=== PATIENT | female | born 1985 | race Caucasian/White ===

== ENCOUNTER 2019-07-22 14:15 | Inpatient (IN) | payer OTHER ==
[2019-08-28] MEDS ORDERED: XIGDUO XR 5 MG1 EAC1 (10:33)
[2019-09-06] MEDS ORDERED: ULTRAM50 MG PO (10:57)
[2019-09-06] MEDS ORDERED: NEURONTIN300 MG PO (10:57)
[2019-09-06] MEDS ORDERED: MIRALAX17 GM PO (10:57)
[2019-09-06] MEDS ORDERED: TYLENOL ARTHRI650 MG PO (10:57)
== END 2019-09-06 11:30 | disposition home or self-care (01) | DRG 354 ==
LOC: EDSTATUS 08-28 09:15 → ADM 08-28 09:15 → SURH 09-04 07:00 → O/R 09-04 09:48 → SURH 09-04 16:21
PROVIDERS: Obstetrics & Gynecology Gynecology; ADMIT Surgery
PROC: 0JX80ZZ Transfer Abdomen Subcutaneous Tissue and Fascia, Open Approach (ICD-10-PCS; 2019-09-04)
PROC: 0UB04ZZ Excision of Right Ovary, Percutaneous Endoscopic Approach (ICD-10-PCS; 2019-09-04)
PROC: 3E0F7GC Introduction of Other Therapeutic Substance into Respiratory Tract, Via Natural or Artificial Opening (ICD-10-PCS; 2019-09-04)
PROC: 0WQF0ZZ Repair Abdominal Wall, Open Approach (ICD-10-PCS; principal; 2019-09-04 07:00)
PROC: 0WJF4ZZ Inspection of Abdominal Wall, Percutaneous Endoscopic Approach (ICD-10-PCS; 2019-09-04 07:00)
PROC: 4A033R1 Measurement of Arterial Saturation, Peripheral, Percutaneous Approach (ICD-10-PCS; 2019-09-05)
DX: K42.0 Umbilical hernia with obstruction, without gangrene (principal); J45.41 Moderate persistent asthma with (acute) exacerbation; J95.89 Other postprocedural complications and disorders of respiratory system, not elsewhere classified; J98.11 Atelectasis; J90 Pleural effusion, not elsewhere classified; K43.0 Incisional hernia with obstruction, without gangrene; D27.0 Benign neoplasm of right ovary; E66.09 Other obesity due to excess calories; E11.9 Type 2 diabetes mellitus without complications; Z79.4 Long term (current) use of insulin

== ENCOUNTER 2019-09-12 12:26 | Inpatient (IN) | payer OTHER ==
[~2019-09-12] VITALS: Ht 154.9 cm; Wt 94.8 kg
[~2019-09-12 12:26] MED LIST: MIRALAX17 GM PO; NEURONTIN300 MG PO; TYLENOL ARTHRI650 MG PO; ULTRAM50 MG PO; XIGDUO XR 5 MG1 EAC1
--- NOTE | 2019-09-12 13:01 | NUR ---
PACIENTE ALERTA,ACTIVA Y ORIENTADA.TIENE REFERIDO DE DR CHRIS MCCAIN POR ABCESO EN AREA UMBILICAL [place] DE RECONSTRUCCION DE HERNIAS.PACIENTE CON DRENAJE EL CUAL TENDRA POR VALERIE SEMANA MAS.
[2019-09-12] MEDS ORDERED: [UNRECOGNIZED DRUG - OTHER] (13:05)
[2019-09-12] MEDS ORDERED: [UNRECOGNIZED DRUG - OTHER] (13:06)
[2019-09-12] MEDS ORDERED: MORGIDOX100 MG (13:10)
--- NOTE | 2019-09-12 13:43 | NUR ---
SE EDUCA A PTE SOBRE TX MEDICO ESTA REFIERE ENTENDER. SE MAGUI MUESTRAS DE LAB UTILIZANDO MEDIDAS ASEPTICAS. SE COLOCA H/L A PTE EL CUAL SE ENCUENTRA PATENTE CATHLEEN DE EDEMA Y ENROJECIMIENTO. SE COLOCA IV BAG A PTE Y SE NOTIFICA ESTUDIO DE CT PENDIENTE A REALIZAR. PTE SE CONTINUA MONITORIANDO POR CAMBIOS.
[2019-09-15] MEDS ORDERED: SULFAMETHOXAZO1 EACH (15:09)
[2019-09-16] MEDS ORDERED: BACTRIM DS TAB1 EACH PO (04:53)
== END 2019-09-16 09:49 | disposition home or self-care (01) | DRG 857 ==
LOC: ER 12:26 → SURG 15:40 → SEC-K 15:40 → SURG 18:13
PROVIDERS: ADMIT Surgery
PROC: 0W9F0ZZ Drainage of Abdominal Wall, Open Approach (ICD-10-PCS; principal; 2019-09-12)
PROC: BW21ZZZ Computerized Tomography (CT Scan) of Abdomen and Pelvis (ICD-10-PCS; 2019-09-12)
DX: T81.41XA Infection following a procedure, superficial incisional surgical site, initial encounter (principal); J45.31 Mild persistent asthma with (acute) exacerbation; J98.11 Atelectasis; L02.211 Cutaneous abscess of abdominal wall; B96.4 Proteus (mirabilis) (morganii) as the cause of diseases classified elsewhere; E66.09 Other obesity due to excess calories; E11.9 Type 2 diabetes mellitus without complications; Z79.4 Long term (current) use of insulin

== ENCOUNTER 2019-11-03 00:13 | Inpatient (IN) | payer OTHER ==
[~2019-11-03] VITALS: Ht 154.9 cm; Wt 97.5 kg
[~2019-11-03 00:13] MED LIST changes: +BACTRIM DS TAB1 EACH PO; +MORGIDOX100 MG; +SULFAMETHOXAZO1 EACH; +[UNRECOGNIZED DRUG - OTHER]; +[UNRECOGNIZED DRUG - OTHER]
[2019-11-03] MEDS ORDERED: XIGDUO XR 5 MG1 EAC1 (00:25)
--- NOTE | 2019-11-03 00:28 | NUR ---
SE RECIBE PTE ALERTA Y ORIENTADA POR MARTIN. PTE REFIERE DEB SIDO OPERADA DE HERNIA HACE MARTIN MESES POR DR. CHRIS MCCAIN Y PRESENTAR AREA DE LA HERIDA DURA, CALIENTE, CON MUCHO DOLOR Y FIEBRE DESDE EL JUEVES.
--- NOTE | 2019-11-03 03:38 | NUR ---
SE ORIENTA A PACIENTE SOBRE TRATAMIENTO. SE MAGUI MUESTRAS DE LABORATORIO ORDENADAS. SE CANALIZA CON AREA DE VENOPUNCION CATHLEEN DE EDEMA O ENROJECIMIENTO. SE MANTIENE EN OBSERVACION POR CAMBIOS.
--- NOTE | 2019-11-03 07:08 | NUR ---
PTE FEMENINA ALERTA Y ORIENTADA EN ANDREINA MARTIN ESFERAS,PRESENTA BUEN PATRON RESPIRATORIO Y NO REFIERE DOLOR. VENOPUNCION EN BRAZO DERECHO CON ANIGO 18 CON IVFS 0.9NSS AT 175ML/HR, CATHLEEN DE EDEMA Y ERITEMA. PENDIENTE CT CON CONTRASTE ORAL. SE MANTIENE EN OBSERVACION POR CAMBIOS SIGNIFICATIVOS.
[2019-11-09] MEDS ORDERED: ULTRAM50 MG PO (10:42)
== END 2019-11-09 12:27 | disposition home or self-care (01) | DRG 580 ==
LOC: ER 00:13 → SEC-K 17:15 → SURH 17:15 → O/R 18:24 → SURH 20:37
PROVIDERS: ADMIT Surgery
PROC: BW21Y0Z Computerized Tomography (CT Scan) of Abdomen and Pelvis using Other Contrast, Unenhanced and Enhanced (ICD-10-PCS; 2019-11-03)
PROC: 0W9F00Z Drainage of Abdominal Wall with Drainage Device, Open Approach (ICD-10-PCS; principal; 2019-11-03 18:00)
DX: L03.311 Cellulitis of abdominal wall (principal); J98.11 Atelectasis; T81.49XA Infection following a procedure, other surgical site, initial encounter; B96.89 Other specified bacterial agents as the cause of diseases classified elsewhere; E11.9 Type 2 diabetes mellitus without complications; E66.09 Other obesity due to excess calories; Z79.4 Long term (current) use of insulin

== ENCOUNTER 2024-01-17 08:00 | Inpatient (IN) | payer OTHER ==
[~2024-01-17] VITALS: Ht 154.9 cm; Wt 189.6 kg
[2024-01-17] MEDS ORDERED: MOUNJARO5 MG/0.5 M SQ (09:50)
[2024-01-17 10:53] LABS: PH,URINE 5.5 (5.0-8.0); URINE APPEARANCE Clear; URINE BILIRRUBIN Negative (NEGATIVE); URINE BLOOD Large; URINE COLOR Yellow; URINE GLUCOSE Negative (NEGATIVE); URINE LEUKOCYTE Trace; URINE NITRATE Negative; URINE PROTEIN Negative (NEGATIVE); URINE UROBILINOGEN 0.2 E.U./dl
[2024-01-17 10:57] LABS: URINE BACTERIA 224.2 uL (0.0-1933); URINE EPITHELIAL CELLS 2.9 uL (0.0-38.8); URINE RBC 944.7 uL (0.0-20.8); URINE WBC 28.4 uL (0.0-23.2)
[2024-01-17 11:06] LABS: HEMATOCRIT 42.5 % (36.0-45.00); HEMOGLOBIN 14.5 g/dL (12.0-15.00); MEAN CELL VOLUME 88.9 fL (80.00-100.00); MEAN CORPUSCULAR HEMOGLOBIN 30.2 pg (27.00-32.0); PLATELET COUNT 182 K/uL (150-450); RED BLOOD COUNT 4.78 M/uL (4.00-6.00)
[2024-01-17 11:35] LABS: CALCIUM 9.2 mg/dL (8.5-10.1); CREATININE SERUM 0.4 mg/dL (0.55-1.02); GFR 179.6; POTASSIUM 4.64 mEq/L (3.5-5.1)
[2024-01-17 11:42] LABS: INR 0.96; PARTIAL THROMBOPLASTIN TIME 27.4 SECONDS (22.0-34.0); PROTHROMBIN TIME 10.1 SECONDS (9.0-11.5)
[2024-01-24] MEDS ORDERED: MOUNJARO7.5 MG/0.5 (11:01)
[2024-01-24] MEDS ORDERED: LIDOCAINE HCL/EPINEPHRINE 10MG/ML 1% 50ML IJ ONE (11:35)
[2024-01-24] MEDS ORDERED: CLINDAMYCIN PHOSPHATE 150 MG/ML (600mg) ONE (11:35)
[2024-01-24] MEDS ORDERED: BUPIVACAINE HCL/PF 0.25% 30ML VIAL InF ONE (11:35)
[2024-01-24] MEDS ORDERED: CLINDAMYCIN PHOSPHATE 150 MG/ML (600mg) IV ONE (12:45)
[2024-01-24] MEDS ORDERED: THROMBIN,HU/FIBRINOGEN/CALCIUM 10 ML SYRINGE TOP ONE ×3 (14:09→14:15)
[2024-01-24] MEDS ORDERED: ONDANSETRON HCL 2 MG/ML VIAL IV PRN (16:00)
[2024-01-24] MEDS ORDERED: ENALAPRILAT DIHYDRATE 1.25 MG/ML VIAL IV PRN (16:00)
[2024-01-24] MEDS ORDERED: MORPHINE SULFATE 4 MG/ML CARTRIDGE IV PRN (16:00)
[2024-01-24] MEDS ORDERED: 0.9 % SODIUM CHLORIDE 1,000 ML IV SCH (16:00)
[2024-01-24] MEDS ORDERED: INSULIN LISPRO 1,000 UNIT/10 ML UNITS SUBCUTANEO PRN (16:15)
[2024-01-24] MEDS ORDERED: DEXTROSE 50 % IN WATER 0.5 G/ML DISP.SYRIN IV PRN (16:15)
[2024-01-24] MEDS ORDERED: BACITRACIN 28.35 GM OINT.TUBE TOP ONE (16:18)
[2024-01-24] MEDS ORDERED: FAMOTIDINE/PF 20 MG/2 ML VIAL IV SCH (17:00)
[2024-01-24] MEDS ORDERED: GABAPENTIN 300 MG CAPSULE PO SCH (17:00)
[2024-01-24] MEDS ORDERED: ACETAMINOPHEN 500 MG GEL..CAP PO SCH (18:00)
[2024-01-24] MEDS ORDERED: FAMOTIDINE/PF 20 MG/2 ML VIAL ONE (19:49)
[2024-01-24] MEDS ORDERED: KETOROLAC TROMETHAMINE 15 MG VIAL ONE (19:55)
[2024-01-24] MEDS ORDERED: KETOROLAC TROMETHAMINE 15 MG VIAL IV SCH (21:00)
[2024-01-25 07:52] LABS: HEMATOCRIT 35.9 % (36.0-45.00); MEAN CELL VOLUME 88.5 fL (80.00-100.00); MEAN CORPUSCULAR HEMOGLOBIN 29.7 pg (27.00-32.0); MEAN CORPUSCULAR HGB CONC 33.5 g/dl (32.0-36.0); PLATELET COUNT 175 K/uL (150-450); RED BLOOD COUNT 4.05 M/uL (4.00-6.00); RED CELL DISTRIBUTION WIDTH 14.8 % (11.5-14.5)
[2024-01-25 08:22] LABS: ALBUMIN 2.7 gm/dL (3.4-5.0); CALCIUM 8.1 mg/dL (8.5-10.1); CREATININE SERUM 0.39 mg/dL (0.55-1.02); GFR 184.93; MAGNESIUM 1.9 mg/dL (1.8-2.4); POTASSIUM 3.79 mEq/L (3.5-5.1)
[2024-01-25] MEDS ORDERED: ENOXAPARIN SODIUM 40 MG/0.4 ML SYRINGE SUBCUTANEO SCH (09:00)
[2024-01-25] MEDS ORDERED: POLYETHYLENE GLYCOL 3350 17 GM BLIST.PACK PO SCH (09:00)
[2024-01-25] MEDS ORDERED: NEOMYCIN/BACITRACIN/POLYMYXINB 28.35 GM OINT..GM. TOP SCH (09:00)
[2024-01-25] MEDS ORDERED: KETOROLAC TROMETHAMINE 30 MG VIAL IV SCH (13:00)
[2024-01-25] MEDS ORDERED: SUCRALFATE 1 G TABLET PO SCH (14:28)
[2024-01-26] MEDS ORDERED: TRAMADOL HCL50 MG PO (05:10)
[2024-01-26] MEDS ORDERED: MIRALAX17 GM PO (05:10)
[2024-01-26] MEDS ORDERED: NEURONTIN300 MG PO (05:10)
[2024-01-26] MEDS ORDERED: KETO10TA2 PO (05:10)
[2024-01-26] MEDS ORDERED: TYLENOL ARTHRI650 MG PO (05:10)
== END 2024-01-26 13:50 | disposition home or self-care (01) | DRG 337 ==
LOC: SURH 01-24 07:00 → O/R 01-24 10:27 → SURG 01-24 10:27
PROVIDERS: ADMIT Surgery; ATTEND Surgery
PROC: 0DNW0ZZ Release Peritoneum, Open Approach (ICD-10-PCS; 2024-01-24)
PROC: 0KRL07Z Replacement of Left Abdomen Muscle with Autologous Tissue Substitute, Open Approach (ICD-10-PCS; 2024-01-24)
PROC: 0KRK07Z Replacement of Right Abdomen Muscle with Autologous Tissue Substitute, Open Approach (ICD-10-PCS; 2024-01-24)
PROC: 0WBF0ZZ Excision of Abdominal Wall, Open Approach (ICD-10-PCS; 2024-01-24)
PROC: 0WUF0JZ Supplement Abdominal Wall with Synthetic Substitute, Open Approach (ICD-10-PCS; principal; 2024-01-24 07:00)
DX: K43.2 Incisional hernia without obstruction or gangrene (principal); K42.9 Umbilical hernia without obstruction or gangrene; Z20.822 Contact with and (suspected) exposure to COVID-19

== ENCOUNTER 2024-02-03 11:52 | Inpatient (IN) | payer OTHER ==
[~2024-02-03] VITALS: Ht 154.9 cm; Wt 86.2 kg
[~2024-02-03 11:52] MED LIST changes: +KETO10TA2 PO; +MOUNJARO5 MG/0.5 M SQ; +MOUNJARO7.5 MG/0.5; +TRAMADOL HCL50 MG PO
[2024-02-03] MEDS ORDERED: 0.9 % SODIUM CHLORIDE 1,000 ML IV STA (13:00)
[2024-02-03 13:29] LABS: PH,URINE 5.5 (5.0-8.0); URINE APPEARANCE Cloudy; URINE BILIRRUBIN Negative (NEGATIVE); URINE BLOOD Negative; URINE COLOR Yellow; URINE GLUCOSE Negative (NEGATIVE); URINE LEUKOCYTE Negative; URINE NITRATE Negative; URINE PROTEIN Negative (NEGATIVE); URINE UROBILINOGEN 0.2 E.U./dl
[2024-02-03 13:32] LABS: URINE BACTERIA 414.5 uL (0.0-1933); URINE RBC 5.4 uL (0.0-20.8); URINE WBC 26.9 uL (0.0-23.2)
[2024-02-03 14:08] LABS: HEMATOCRIT 35.2 % (36.0-45.00); HEMOGLOBIN 11.8 g/dL (12.0-15.00); MEAN CELL VOLUME 87.6 fL (80.00-100.00); MEAN CORPUSCULAR HEMOGLOBIN 29.4 pg (27.00-32.0); MEAN CORPUSCULAR HGB CONC 33.6 g/dl (32.0-36.0); PLATELET COUNT 304 K/uL (150-450); RED BLOOD COUNT 4.02 M/uL (4.00-6.00); RED CELL DISTRIBUTION WIDTH 14.6 % (11.5-14.5)
[2024-02-03 14:16] LABS: ALBUMIN 2.8 gm/dL (3.4-5.0); BILIRUBIN TOTAL 0.8 mg/dL (0.3-1.2); BILIRUBIN,CONJUGATED 0.17 mg/dL (0.0-0.2); BILIRUBIN,UNCONJUGATED 0.63 mg/dL (0.0-0.6); CALCIUM 9.4 mg/dL (8.5-10.1); CREATININE SERUM 0.44 mg/dL (0.55-1.02); GFR 160.9; INR 0.97; PARTIAL THROMBOPLASTIN TIME 27.7 SECONDS (22.0-34.0); POTASSIUM 3.83 mEq/L (3.5-5.1); PROTHROMBIN TIME 10.2 SECONDS (9.0-11.5); TOTAL PROTEIN 8.4 gm/dL (6.4-8.2)
[2024-02-03] MEDS ORDERED: MEPERIDINE HCL/PF 50 MG/ML VIAL IM ONE (15:00)
[2024-02-03] MEDS ORDERED: FAMOTIDINE/PF 20 MG/2 ML VIAL IV SCH (17:55)
[2024-02-03] MEDS ORDERED: METRONIDAZOLE/SODIUM CHLORIDE 500 MG/100 ML PIGGYBACK IV SCH (17:58)
[2024-02-03] MEDS ORDERED: VANCOMYCIN HCL 1,000 MG VIAL IV SCH (17:58)
[2024-02-03] MEDS ORDERED: INSULIN LISPRO 1,000 UNIT/10 ML UNITS SUBCUTANEO PRN (18:00)
[2024-02-03] MEDS ORDERED: GABAPENTIN 300 MG CAPSULE PO PRN (18:00)
[2024-02-03] MEDS ORDERED: ENALAPRILAT DIHYDRATE 1.25 MG/ML VIAL IV PRN (18:00)
[2024-02-03] MEDS ORDERED: DEXTROSE 50 % IN WATER 0.5 G/ML DISP.SYRIN IV PRN (18:00)
[2024-02-03] MEDS ORDERED: PIPERACILLIN/TAZOBACTAM SODIUM 3.375 GM in 0.9 % SODIUM CHLORIDE 100 ML IV SCH (18:00)
[2024-02-03] MEDS ORDERED: TRAMADOL HCL 50 MG TABLET PO PRN (18:00)
[2024-02-03] MEDS ORDERED: 0.9 % SODIUM CHLORIDE 1,000 ML IV SCH (18:00)
[2024-02-03] MEDS ORDERED: ACETAMINOPHEN 500 MG GEL..CAP PO PRN (18:00)
[2024-02-03] MEDS ORDERED: ONDANSETRON HCL 2 MG/ML VIAL IV PRN (18:00)
[2024-02-03] MEDS ORDERED: KETOROLAC TROMETHAMINE 15 MG VIAL IV SCH (21:00)
[2024-02-04] MEDS ORDERED: POLYETHYLENE GLYCOL 3350 17 GM BLIST.PACK PO SCH (09:00)
[2024-02-04] MEDS ORDERED: ENOXAPARIN SODIUM 40 MG/0.4 ML SYRINGE SUBCUTANEO SCH (09:00)
[2024-02-04] MEDS ORDERED: FAMOtidine 20 MG TABLET PO SCH (09:00)
[2024-02-04] MEDS ORDERED: INSULIN LISPRO 1,000 UNIT/10 ML UNITS SUBCUTANEO PRN (16:15)
[2024-02-04] MEDS ORDERED: DEXTROSE 50 % IN WATER 0.5 G/ML DISP.SYRIN IV PRN (16:15)
[2024-02-04] MEDS ORDERED: AMINO ACIDS 1 EACH TABLET PO SCH (17:00)
[2024-02-04] MEDS ORDERED: KETOROLAC TROMETHAMINE 30 MG VIAL IV SCH (21:00)
[2024-02-05 07:24] LABS: HEMATOCRIT 29.6 % (36.0-45.00); MEAN CELL VOLUME 89.3 fL (80.00-100.00); MEAN CORPUSCULAR HEMOGLOBIN 30.2 pg (27.00-32.0); MEAN CORPUSCULAR HGB CONC 33.8 g/dl (32.0-36.0); PLATELET COUNT 271 K/uL (150-450); RED BLOOD COUNT 3.31 M/uL (4.00-6.00); RED CELL DISTRIBUTION WIDTH 14.3 % (11.5-14.5)
[2024-02-05 07:54] LABS: ALBUMIN 2.2 gm/dL (3.4-5.0); BILIRUBIN TOTAL 0.49 mg/dL (0.3-1.2); CALCIUM 8.3 mg/dL (8.5-10.1); CREATININE SERUM 0.44 mg/dL (0.55-1.02); GFR 160.9; GLOBULINA 3.7 G/DL (2.4-3.5); MAGNESIUM 1.9 mg/dL (1.8-2.4); PHOSPHOROUS 4.3 mg/dL (2.5-4.9); POTASSIUM 4.36 mEq/L (3.5-5.1); TOTAL PROTEIN 5.9 gm/dL (6.4-8.2)
[2024-02-05 07:56] LABS: C-REACTIVE PROTEIN 7.16 MG/DL (0.00-0.29)
[2024-02-05] MEDS ORDERED: LACTOBACILLUS ACIDOPHILUS 1 CAP CAP PO SCH (09:00)
[2024-02-05 20:12] LABS: ob NEGATIVE (NEGATIVE)
[2024-02-06] MEDS ORDERED: INSULIN NPH HUM/REG INSULIN HM 1,000 UNIT/10 ML UNITS SUBCUTANEO SCH (17:00)
[2024-02-06] MEDS ORDERED: CEFEPIME HCL 2,000 MG VIAL IV SCH (21:00)
[2024-02-07] MEDS ORDERED: INSULIN NPH HUM/REG INSULIN HM 1,000 UNIT/10 ML UNITS SUBCUTANEO SCH (08:00)
[2024-02-07] MEDS ORDERED: KETOROLAC TROMETHAMINE 30 MG VIAL IV PRN (09:30)
[2024-02-07] MEDS ORDERED: ENOXAPARIN SODIUM 40 MG/0.4 ML SYRINGE SUBCUTANEO SCH (21:00)
[2024-02-08 05:21] LABS: HEMATOCRIT 28.1 % (36.0-45.00); HEMOGLOBIN 9.7 g/dL (12.0-15.00); MEAN CELL VOLUME 88.3 fL (80.00-100.00); MEAN CORPUSCULAR HEMOGLOBIN 30.4 pg (27.00-32.0); MEAN CORPUSCULAR HGB CONC 34.4 g/dl (32.0-36.0); PLATELET COUNT 275 K/uL (150-450); RED BLOOD COUNT 3.18 M/uL (4.00-6.00); RED CELL DISTRIBUTION WIDTH 14.7 % (11.5-14.5)
[2024-02-08 05:43] LABS: CALCIUM 8.5 mg/dL (8.5-10.1); CREATININE SERUM 0.37 mg/dL (0.55-1.02); GFR 196.51; POTASSIUM 4.75 mEq/L (3.5-5.1)
[2024-02-08] MEDS ORDERED: ENOXAPARIN SODIUM 80 MG/0.8 ML SYRINGE SUBCUTANEO SCH (09:30)
[2024-02-08] MEDS ORDERED: SOD FERRIC GLUC COMPLX/SUCROSE 62.5 MG/5 ML AMPUL IV SCH (18:56)
[2024-02-08] MEDS ORDERED: Cyanocobalamin/Mecobalamin 1 TAB.SL SL SCH (18:56)
[2024-02-08] MEDS ORDERED: VITAMIN B COMPLEX 1 EACH PO SCH (18:56)
[2024-02-08] MEDS ORDERED: TRAMADOL HCL 50 MG TABLET PO PRN (19:30)
[2024-02-09] MEDS ORDERED: TRAMADOL HCL 50 MG TABLET PO PRN (06:15)
[2024-02-09] MEDS ORDERED: KETOROLAC TROMETHAMINE 30 MG VIAL IV ONE (12:15)
[2024-02-09] MEDS ORDERED: KETOROLAC TROMETHAMINE 30 MG VIAL ONE (12:18)
[2024-02-10] MEDS ORDERED: GABAPENTIN 400 MG CAPSULE PO PRN (07:51)
[2024-02-10] MEDS ORDERED: TRAMADOL HCL 50 MG TABLET PO PRN (08:15)
[2024-02-11 07:52] LABS: HEMATOCRIT 31.5 % (36.0-45.00); HEMOGLOBIN 10.5 g/dL (12.0-15.00); MEAN CELL VOLUME 87.8 fL (80.00-100.00); MEAN CORPUSCULAR HEMOGLOBIN 29.2 pg (27.00-32.0); MEAN CORPUSCULAR HGB CONC 33.3 g/dl (32.0-36.0); PLATELET COUNT 291 K/uL (150-450); RED BLOOD COUNT 3.59 M/uL (4.00-6.00); RED CELL DISTRIBUTION WIDTH 15.1 % (11.5-14.5)
[2024-02-11] MEDS ORDERED: INSULIN LISPRO 1,000 UNIT/10 ML UNITS SUBCUTANEO SCH ×3 (08:00→17:00)
[2024-02-11 08:34] LABS: CALCIUM 8.7 mg/dL (8.5-10.1); CREATININE SERUM 0.33 mg/dL (0.55-1.02); GFR 224.24; MAGNESIUM 1.9 mg/dL (1.8-2.4); PHOSPHOROUS 3.8 mg/dL (2.5-4.9); POTASSIUM 4.43 mEq/L (3.5-5.1)
[2024-02-11] MEDS ORDERED: INSULIN GLARGINE,HUM.REC.ANLOG 1,000 UNITS/10 ML UNITS SUBCUTANEO SCH (09:00)
[2024-02-12] MEDS ORDERED: INSULIN LISPRO 1,000 UNIT/10 ML UNITS SUBCUTANEO SCH ×3 (08:00→17:00)
[2024-02-12] MEDS ORDERED: DIATRIZOATE MEGLUMINE, SODIUM 30 ML BOTTLE PO ONE (18:30)
[2024-02-12 19:45] LABS: HEMATOCRIT 33.8 % (36.0-45.00); HEMOGLOBIN 11.6 g/dL (12.0-15.00); MEAN CELL VOLUME 89.6 fL (80.00-100.00); MEAN CORPUSCULAR HEMOGLOBIN 30.7 pg (27.00-32.0); MEAN CORPUSCULAR HGB CONC 34.2 g/dl (32.0-36.0); PLATELET COUNT 281 K/uL (150-450); RED BLOOD COUNT 3.78 M/uL (4.00-6.00); RED CELL DISTRIBUTION WIDTH 14.7 % (11.5-14.5)
[2024-02-12 20:11] LABS: CALCIUM 9.2 mg/dL (8.5-10.1); CREATININE SERUM 0.69 mg/dL (0.55-1.02); GFR 95.73; POTASSIUM 4.32 mEq/L (3.5-5.1)
[2024-02-12 20:12] LABS: INR 1.01; PARTIAL THROMBOPLASTIN TIME 29.9 SECONDS (22.0-34.0); PROTHROMBIN TIME 10.6 SECONDS (9.0-11.5)
[2024-02-12 21:16] LABS: PH,URINE 7.5 (5.0-8.0); URINE APPEARANCE Clear; URINE BILIRRUBIN Negative (NEGATIVE); URINE BLOOD Negative; URINE COLOR Yellow; URINE GLUCOSE Negative (NEGATIVE); URINE LEUKOCYTE Trace; URINE NITRATE Negative; URINE PROTEIN Negative (NEGATIVE); URINE UROBILINOGEN 0.2 E.U./dl
[2024-02-12 21:26] LABS: URINE BACTERIA 7.5 uL (0.0-1933); URINE EPITHELIAL CELLS 2.9 uL (0.0-38.8); URINE RBC 5.8 uL (0.0-20.8)
[2024-02-13] MEDS ORDERED: KETOROLAC TROMETHAMINE 30 MG VIAL IV SCH (11:37)
[2024-02-13] MEDS ORDERED: MORPHINE SULFATE 4 MG/ML CARTRIDGE IV PRN (11:45)
[2024-02-13] MEDS ORDERED: TRAMADOL HCL 50 MG TABLET PO PRN (11:45)
[2024-02-13] MEDS ORDERED: VANCOMYCIN HCL 5 MG/ML REDILUIDO IV SCH (21:00)
[2024-02-14] MEDS ORDERED: POLYETHYLENE GLYCOL 3350 17 GM BLIST.PACK PO SCH (09:00)
[2024-02-14] MEDS ORDERED: ENOXAPARIN SODIUM 80 MG/0.8 ML SYRINGE SUBCUTANEO SCH (13:04)
[2024-02-14] MEDS ORDERED: ENOXAPARIN SODIUM 80 MG/0.8 ML SYRINGE SUBCUTANEO ONE (13:30)
[2024-02-15 07:18] LABS: HEMOGLOBIN 10.1 g/dL (12.0-15.00); MEAN CELL VOLUME 90.8 fL (80.00-100.00); MEAN CORPUSCULAR HEMOGLOBIN 30.5 pg (27.00-32.0); MEAN CORPUSCULAR HGB CONC 33.6 g/dl (32.0-36.0); PLATELET COUNT 200 K/uL (150-450); RED CELL DISTRIBUTION WIDTH 15.5 % (11.5-14.5)
[2024-02-15 08:05] LABS: CALCIUM 8.4 mg/dL (8.5-10.1); CREATININE SERUM 0.31 mg/dL (0.55-1.02); GFR 241.02; POTASSIUM 4.41 mEq/L (3.5-5.1)
[2024-02-15] MEDS ORDERED: KETOROLAC TROMETHAMINE 30 MG VIAL IV PRN (13:48)
[2024-02-18] MEDS ORDERED: GABAPENTIN 600 MG TABLET PO PRN (05:00)
[2024-02-18] MEDS ORDERED: TRAMADOL HCL 50 MG TABLET PO PRN (05:15)
[2024-02-18] MEDS ORDERED: APIXABAN 5 MG TABLET PO SCH (09:00)
[2024-02-18] MEDS ORDERED: ZINC OXIDE 30 GM,SILVER SULFADIAZINE 50 GM,NYSTATIN 30 GM TOP SCH (17:00)
[2024-02-19] MEDS ORDERED: LINEZOLID 600 MG TABLET PO SCH (17:00)
[2024-02-21 06:51] LABS: HEMATOCRIT 33.5 % (36.0-45.00); HEMOGLOBIN 11.4 g/dL (12.0-15.00); MEAN CELL VOLUME 90.9 fL (80.00-100.00); MEAN CORPUSCULAR HGB CONC 34.1 g/dl (32.0-36.0); PLATELET COUNT 172 K/uL (150-450); RED BLOOD COUNT 3.68 M/uL (4.00-6.00); RED CELL DISTRIBUTION WIDTH 16.3 % (11.5-14.5)
[2024-02-21 07:46] LABS: ALBUMIN 2.8 gm/dL (3.4-5.0); BILIRUBIN TOTAL 0.41 mg/dL (0.3-1.2); CALCIUM 9.1 mg/dL (8.5-10.1); CREATININE SERUM 0.46 mg/dL (0.55-1.02); GFR 152.85; GLOBULINA 4.2 G/DL (2.4-3.5); POTASSIUM 4.41 mEq/L (3.5-5.1)
[2024-02-21] MEDS ORDERED: INSULIN GLARGINE,HUM.REC.ANLOG 1,000 UNITS/10 ML UNITS SUBCUTANEO SCH (17:00)
[2024-02-21] MEDS ORDERED: APIXABAN 5 MG TABLET PO SCH (17:00)
[2024-02-22] MEDS ORDERED: INSULIN LISPRO 1,000 UNIT/10 ML UNITS SUBCUTANEO SCH (08:00)
[2024-02-23] MEDS ORDERED: INSULIN GLARGINE,HUM.REC.ANLOG 1,000 UNITS/10 ML UNITS SUBCUTANEO SCH (09:00)
[2024-02-24] MEDS ORDERED: INSULIN GLARGINE,HUM.REC.ANLOG 1,000 UNITS/10 ML UNITS SUBCUTANEO SCH (09:00)
[2024-02-25] MEDS ORDERED: APIXABAN 5 MG TABLET PO SCH (17:00)
[2024-02-26] MEDS ORDERED: TRAMADOL HCL 50 MG TABLET PO STA (09:53)
== END 2024-02-26 14:04 | disposition home or self-care (01) | DRG 982 ==
LOC: ER 11:53 → SURH 18:28 → SEC-K 18:28 → SURH 19:43
PROVIDERS: General Practice; Internal Medicine; Internal Medicine Geriatric Medicine; Internal Medicine Infectious Disease; ADMIT Surgery; ATTEND Surgery
PROC: BW21YZZ Computerized Tomography (CT Scan) of Abdomen and Pelvis using Other Contrast (ICD-10-PCS; 2024-02-03)
PROC: 02HV33Z Insertion of Infusion Device into Superior Vena Cava, Percutaneous Approach (ICD-10-PCS; 2024-02-04)
PROC: B54MZZZ Ultrasonography of Right Upper Extremity Veins (ICD-10-PCS; 2024-02-07)
PROC: BW21YZZ Computerized Tomography (CT Scan) of Abdomen and Pelvis using Other Contrast (ICD-10-PCS; 2024-02-12)
PROC: 0WPF4JZ Removal of Synthetic Substitute from Abdominal Wall, Percutaneous Endoscopic Approach (ICD-10-PCS; 2024-02-13)
PROC: 0W9F40Z Drainage of Abdominal Wall with Drainage Device, Percutaneous Endoscopic Approach (ICD-10-PCS; 2024-02-13)
PROC: 2W03X6Z Change Pressure Dressing on Abdominal Wall (ICD-10-PCS; 2024-02-13)
PROC: 0WCG4ZZ Extirpation of Matter from Peritoneal Cavity, Percutaneous Endoscopic Approach (ICD-10-PCS; principal; 2024-02-13 09:00)
DX: L02.211 Cutaneous abscess of abdominal wall (principal); I82.611 Acute embolism and thrombosis of superficial veins of right upper extremity; T81.49XA Infection following a procedure, other surgical site, initial encounter; I82.A11 Acute embolism and thrombosis of right axillary vein; E11.9 Type 2 diabetes mellitus without complications; Z79.4 Long term (current) use of insulin; D64.9 Anemia, unspecified; D69.6 Thrombocytopenia, unspecified

== ENCOUNTER 2024-03-25 07:07 | Inpatient (IN) | payer OTHER ==
[~2024-03-25] VITALS: Ht 154.9 cm; Wt 86.2 kg
[~2024-03-25 07:07] MED LIST changes: +XIGDUO XR 10 M1 EAC1
[2024-03-25] MEDS ORDERED: 0.9 % SODIUM CHLORIDE 1,000 ML IV STA (08:46)
[2024-03-25] MEDS ORDERED: PIPERACILLIN/TAZOBACTAM SODIUM 3.375 GM in 0.9 % SODIUM CHLORIDE 100 ML IV SCH (08:48)
[2024-03-25] MEDS ORDERED: KETOROLAC TROMETHAMINE 60 MG VIAL IM STA (08:49)
[2024-03-25] MEDS ORDERED: AMPICILLIN SODIUM/SULBACTAM NA 3,000 MG VIAL IV STA (08:54)
[2024-03-25 09:39] LABS: HEMATOCRIT 38.9 % (36.0-45.00); HEMOGLOBIN 13.1 g/dL (12.0-15.00); MEAN CELL VOLUME 91.5 fL (80.00-100.00); MEAN CORPUSCULAR HEMOGLOBIN 30.9 pg (27.00-32.0); MEAN CORPUSCULAR HGB CONC 33.8 g/dl (32.0-36.0); PLATELET COUNT 280 K/uL (150-450); RED BLOOD COUNT 4.25 M/uL (4.00-6.00); RED CELL DISTRIBUTION WIDTH 16.1 % (11.5-14.5)
[2024-03-25] MEDS ORDERED: FAMOTIDINE/PF 20 MG/2 ML VIAL IV SCH (09:48)
[2024-03-25] MEDS ORDERED: KETOROLAC TROMETHAMINE 30 MG VIAL IM SCH (09:57)
[2024-03-25] MEDS ORDERED: DEXTROSE 50 % IN WATER 0.5 G/ML DISP.SYRIN IV PRN (10:00)
[2024-03-25] MEDS ORDERED: INSULIN LISPRO 1,000 UNIT/10 ML UNITS SUBCUTANEO PRN (10:00)
[2024-03-25] MEDS ORDERED: ONDANSETRON HCL 4 MG in 0.9 % SODIUM CHLORIDE 50 ML IV PRN (10:00)
[2024-03-25] MEDS ORDERED: SODIUM HYPOCHLORITE 1OZ TOP SCH (10:56)
[2024-03-25 11:01] LABS: CREATININE SERUM 0.4 mg/dL (0.55-1.02); GFR 179.6
[2024-03-25 11:02] LABS: INR 0.99; PARTIAL THROMBOPLASTIN TIME 30.1 SECONDS (22.0-34.0); PROTHROMBIN TIME 10.4 SECONDS (9.0-11.5)
[2024-03-25] MEDS ORDERED: 0.9 % SODIUM CHLORIDE 1,000 ML IV SCH (12:00)
[2024-03-25 14:10] LABS: URINE APPEARANCE Clear; URINE BILIRRUBIN Negative (NEGATIVE); URINE BLOOD Negative; URINE COLOR Yellow; URINE LEUKOCYTE Negative; URINE NITRATE Negative; URINE PROTEIN Negative (NEGATIVE); URINE UROBILINOGEN 0.2 E.U./dl
[2024-03-25] MEDS ORDERED: IPRATROPIUM/ALBUTEROL SULFATE 3 ML AMPUL.NEB IH SCH (14:11)
[2024-03-25] MEDS ORDERED: BENZONATATE 200 MG CAPSULE PO PRN (14:15)
[2024-03-25] MEDS ORDERED: ACETAMINOPHEN 500 MG GEL..CAP PO PRN (14:15)
[2024-03-25] MEDS ORDERED: ENALAPRILAT DIHYDRATE 1.25 MG/ML VIAL IV PRN (14:15)
[2024-03-25 14:27] LABS: URINE EPITHELIAL CELLS 10.2 uL (0.0-38.8); URINE GLUCOSE >=1000 MG/DL (NEGATIVE); URINE RBC 3.3 uL (0.0-20.8); URINE WBC 31.6 uL (0.0-23.2)
[2024-03-25] MEDS ORDERED: INSULIN LISPRO 1,000 UNIT/10 ML UNITS SUBCUTANEO SCH (17:00)
[2024-03-25] MEDS ORDERED: LACTOBACILLUS ACIDOPHILUS 1 CAP CAP PO SCH (17:00)
[2024-03-25] MEDS ORDERED: AMPICILLIN SODIUM/SULBACTAM NA 3,000 MG in 0.9 % SODIUM CHLORIDE 100 ML IV SCH (17:00)
[2024-03-25] MEDS ORDERED: ENOXAPARIN SODIUM 80 MG/0.8 ML SYRINGE SUBCUTANEO SCH (21:00)
[2024-03-25] MEDS ORDERED: INSULIN GLARGINE,HUM.REC.ANLOG 1,000 UNITS/10 ML UNITS SUBCUTANEO SCH (21:00)
[2024-03-26] MEDS ORDERED: MEROPENEM 500 MG/VIAL VIAL IV SCH (14:00)
[2024-03-26] MEDS ORDERED: LINEZOLID 600 MG TABLET PO SCH (17:00)
[2024-03-29] MEDS ORDERED: GABAPENTIN 400 MG CAPSULE PO SCH ×2 (06:14→13:00)
[2024-03-29] MEDS ORDERED: ACETAMINOPHEN 500 MG GEL..CAP PO SCH (06:14)
[2024-03-29] MEDS ORDERED: KETOROLAC TROMETHAMINE 30 MG VIAL IV PRN (06:15)
[2024-03-30] MEDS ORDERED: APIXABAN 5 MG TABLET PO SCH (09:00)
[2024-03-31 06:42] LABS: MEAN CELL VOLUME 91.9 fL (80.00-100.00); MEAN CORPUSCULAR HEMOGLOBIN 30.5 pg (27.00-32.0); MEAN CORPUSCULAR HGB CONC 33.2 g/dl (32.0-36.0); PLATELET COUNT 236 K/uL (150-450); RED BLOOD COUNT 3.59 M/uL (4.00-6.00); RED CELL DISTRIBUTION WIDTH 15.8 % (11.5-14.5)
[2024-03-31 07:13] LABS: ERYTHROCYTE SEDIMENTATION RATE 68 mm/hr
[2024-03-31 07:18] LABS: ALBUMIN 2.6 gm/dL (3.4-5.0); BILIRUBIN TOTAL 0.25 mg/dL (0.3-1.2); CALCIUM 8.5 mg/dL (8.5-10.1); GLOBULINA 3.9 G/DL (2.4-3.5); POTASSIUM 4.47 mEq/L (3.5-5.1); TOTAL PROTEIN 6.5 gm/dL (6.4-8.2)
[2024-03-31 07:22] LABS: C-REACTIVE PROTEIN 0.52 MG/DL (0.00-0.29); CREATININE SERUM 0.26 mg/dL (0.55-1.02); GFR 295.26
[2024-03-31] MEDS ORDERED: NYSTATIN 30 GM,ZINC OXIDE 30 GM,SILVER SULFADIAZINE 50 GM TOP SCH (21:00)
[2024-04-02 05:53] LABS: HEMOGLOBIN 11.1 g/dL (12.0-15.00); MEAN CELL VOLUME 91.8 fL (80.00-100.00); MEAN CORPUSCULAR HEMOGLOBIN 30.9 pg (27.00-32.0); MEAN CORPUSCULAR HGB CONC 33.6 g/dl (32.0-36.0); PLATELET COUNT 228 K/uL (150-450); RED BLOOD COUNT 3.59 M/uL (4.00-6.00); RED CELL DISTRIBUTION WIDTH 15.8 % (11.5-14.5)
[2024-04-02 06:46] LABS: ALBUMIN 2.7 gm/dL (3.4-5.0); BILIRUBIN TOTAL 0.26 mg/dL (0.3-1.2); CALCIUM 8.6 mg/dL (8.5-10.1); CREATININE SERUM 0.37 mg/dL (0.55-1.02); GFR 196.51; GLOBULINA 3.8 G/DL (2.4-3.5); MAGNESIUM 1.8 mg/dL (1.8-2.4); PHOSPHOROUS 4.4 mg/dL (2.5-4.9); POTASSIUM 4.21 mEq/L (3.5-5.1); TOTAL PROTEIN 6.5 gm/dL (6.4-8.2)
[2024-04-02 06:50] LABS: C-REACTIVE PROTEIN 0.43 MG/DL (0.00-0.29)
[2024-04-03] MEDS ORDERED: FAMOtidine 20 MG TABLET PO SCH (09:00)
[2024-04-05] MEDS ORDERED: ACETAMINOPHEN 500 MG GEL..CAP PO PRN (08:15)
[2024-04-05] MEDS ORDERED: GABAPENTIN 400 MG CAPSULE PO SCH (21:00)
[2024-04-07] MEDS ORDERED: INSULIN LISPRO 1,000 UNIT/10 ML UNITS SUBCUTANEO PRN (09:45)
[2024-04-07] MEDS ORDERED: DEXTROSE 50 % IN WATER 0.5 G/ML VIAL IV PRN (10:15)
[2024-04-07] MEDS ORDERED: INSULIN LISPRO 1,000 UNIT/10 ML UNITS SUBCUTANEO SCH (12:00)
[2024-04-07] MEDS ORDERED: INSULIN GLARGINE,HUM.REC.ANLOG 1,000 UNITS/10 ML UNITS SUBCUTANEO SCH (21:00)
[2024-04-08 07:27] LABS: HEMATOCRIT 36.8 % (36.0-45.00); HEMOGLOBIN 12.4 g/dL (12.0-15.00); MEAN CORPUSCULAR HGB CONC 33.7 g/dl (32.0-36.0); PLATELET COUNT 213 K/uL (150-450); RED BLOOD COUNT 4.01 M/uL (4.00-6.00)
[2024-04-08 08:17] LABS: ALBUMIN 3.2 gm/dL (3.4-5.0); BILIRUBIN TOTAL 0.63 mg/dL (0.3-1.2); CALCIUM 9.4 mg/dL (8.5-10.1); CREATININE SERUM 0.31 mg/dL (0.55-1.02); GFR 241.02; GLOBULINA 4.3 G/DL (2.4-3.5); MAGNESIUM 1.8 mg/dL (1.8-2.4); PHOSPHOROUS 4.6 mg/dL (2.5-4.9); POTASSIUM 4.88 mEq/L (3.5-5.1); TOTAL PROTEIN 7.5 gm/dL (6.4-8.2)
[2024-04-08 08:19] LABS: C-REACTIVE PROTEIN 0.62 MG/DL (0.00-0.29)
[2024-04-10] MEDS ORDERED: TRAMADOL HCL 50 MG TABLET PO PRN (15:30)
[2024-04-10] MEDS ORDERED: KETOROLAC TROMETHAMINE 30 MG VIAL IV STA (16:05)
[2024-04-10] MEDS ORDERED: MORPHINE SULFATE 4 MG/ML CARTRIDGE IV SCH (17:00)
[2024-04-10] MEDS ORDERED: KETOROLAC TROMETHAMINE 30 MG VIAL IV PRN (20:00)
[2024-04-11] MEDS ORDERED: KETOROLAC TROMETHAMINE 30 MG VIAL ONE (01:49)
[2024-04-11] MEDS ORDERED: APIXABAN 5 MG TABLET PO SCH (09:00)
[2024-04-11] MEDS ORDERED: MAGNESIUM SULFATE IN WATER 2 GM/50 ML PIGGYBAG IV NR (19:00)
[2024-04-11] MEDS ORDERED: ORPHENADRINE CITRATE 100 MG TABLET PO NR (19:30)
[2024-04-11] MEDS ORDERED: MORPHINE SULFATE 4 MG/ML CARTRIDGE IV SCH (21:00)
[2024-04-12] MEDS ORDERED: KETOROLAC TROMETHAMINE 30 MG VIAL IV PRN (07:15)
[2024-04-12] MEDS ORDERED: GABAPENTIN 600 MG TABLET PO SCH (09:00)
[2024-04-12] MEDS ORDERED: ORPHENADRINE CITRATE 100 MG TABLET PO SCH (09:00)
[2024-04-12] MEDS ORDERED: ACETAMINOPHEN 500 MG GEL..CAP PO SCH (09:00)
[2024-04-14] MEDS ORDERED: CLOTRIMAZOLE/BETAMETHASONE DIP 15 GM TUBE TOP SCH (17:00)
[2024-04-15 07:34] LABS: HEMATOCRIT 33.6 % (36.0-45.00); HEMOGLOBIN 11.3 g/dL (12.0-15.00); MEAN CELL VOLUME 91.8 fL (80.00-100.00); MEAN CORPUSCULAR HEMOGLOBIN 30.7 pg (27.00-32.0); MEAN CORPUSCULAR HGB CONC 33.5 g/dl (32.0-36.0); PLATELET COUNT 160 K/uL (150-450); RED BLOOD COUNT 3.66 M/uL (4.00-6.00); RED CELL DISTRIBUTION WIDTH 15.8 % (11.5-14.5)
[2024-04-15 08:30] LABS: ALBUMIN 2.7 gm/dL (3.4-5.0); BILIRUBIN TOTAL 0.32 mg/dL (0.3-1.2); CALCIUM 9.3 mg/dL (8.5-10.1); CREATININE SERUM 0.43 mg/dL (0.55-1.02); GFR 165.22; GLOBULINA 3.7 G/DL (2.4-3.5); MAGNESIUM 1.9 mg/dL (1.8-2.4); PHOSPHOROUS 5.3 mg/dL (2.5-4.9); POTASSIUM 4.4 mEq/L (3.5-5.1); TOTAL PROTEIN 6.4 gm/dL (6.4-8.2)
[2024-04-15 08:35] LABS: C-REACTIVE PROTEIN 0.3 MG/DL (0.00-0.29)
[2024-04-18 07:33] LABS: HEMATOCRIT 36.7 % (36.0-45.00); HEMOGLOBIN 12.4 g/dL (12.0-15.00); MEAN CELL VOLUME 91.6 fL (80.00-100.00); MEAN CORPUSCULAR HEMOGLOBIN 30.9 pg (27.00-32.0); MEAN CORPUSCULAR HGB CONC 33.7 g/dl (32.0-36.0); PLATELET COUNT 187 K/uL (150-450)
[2024-04-21 07:20] LABS: HEMATOCRIT 39.4 % (36.0-45.00); HEMOGLOBIN 13.2 g/dL (12.0-15.00); MEAN CELL VOLUME 89.6 fL (80.00-100.00); MEAN CORPUSCULAR HEMOGLOBIN 30.1 pg (27.00-32.0); MEAN CORPUSCULAR HGB CONC 33.6 g/dl (32.0-36.0); PLATELET COUNT 202 K/uL (150-450); RED BLOOD COUNT 4.39 M/uL (4.00-6.00)
[2024-04-21 07:47] LABS: ALBUMIN 3.3 gm/dL (3.4-5.0); BILIRUBIN TOTAL 0.63 mg/dL (0.3-1.2); CALCIUM 9.4 mg/dL (8.5-10.1); CREATININE SERUM 0.4 mg/dL (0.55-1.02); GFR 179.6; GLOBULINA 4.2 G/DL (2.4-3.5); POTASSIUM 4.82 mEq/L (3.5-5.1); TOTAL PROTEIN 7.5 gm/dL (6.4-8.2)
[2024-04-21] MEDS ORDERED: TRAMADOL HCL 50 MG TABLET PO PRN (19:45)
[2024-04-21] MEDS ORDERED: ACETAMINOPHEN 500 MG GEL..CAP PO PRN (19:45)
[2024-04-22] MEDS ORDERED: APIXABAN 5 MG TABLET PO SCH (09:00)
[2024-04-25] MEDS ORDERED: AMINO ACIDS 1 EACH TABLET PO SCH (17:00)
[2024-04-25] MEDS ORDERED: AMINO ACIDS/PROTEIN HYDROLYS 30 ML BLIST.PACK PO SCH (21:00)
[2024-04-26] MEDS ORDERED: ORPHENADRINE CITRATE 100 MG TABLET PO PRN (05:32)
[2024-04-26] MEDS ORDERED: ACETAMINOPHEN 500 MG GEL..CAP PO PRN (05:45)
[2024-04-26] MEDS ORDERED: GABAPENTIN 400 MG CAPSULE PO SCH (21:00)
[2024-04-26] MEDS ORDERED: ONDANSETRON HCL 2 MG/ML VIAL IV SCH (22:45)
[2024-04-27] MEDS ORDERED: FAMOTIDINE/PF 20 MG/2 ML VIAL IV SCH (19:57)
[2024-04-27] MEDS ORDERED: BISMUTH SUBSALICYLATE 524 MG/30 ML BLIST.PACK PO STA (19:58)
[2024-04-27] MEDS ORDERED: 0.9 % SODIUM CHLORIDE 1,000 ML IV SCH (20:00)
[2024-04-28 08:20] LABS: HEMATOCRIT 37.4 % (36.0-45.00); HEMOGLOBIN 12.6 g/dL (12.0-15.00); MEAN CELL VOLUME 89.2 fL (80.00-100.00); MEAN CORPUSCULAR HGB CONC 33.6 g/dl (32.0-36.0); PLATELET COUNT 152 K/uL (150-450); RED BLOOD COUNT 4.19 M/uL (4.00-6.00); RED CELL DISTRIBUTION WIDTH 15.4 % (11.5-14.5)
[2024-04-28 08:45] LABS: CALCIUM 9.1 mg/dL (8.5-10.1); CREATININE SERUM 0.38 mg/dL (0.55-1.02); GFR 190.56; MAGNESIUM 1.9 mg/dL (1.8-2.4); PHOSPHOROUS 3.9 mg/dL (2.5-4.9); POTASSIUM 4.74 mEq/L (3.5-5.1)
[2024-04-28] MEDS ORDERED: BISMUTH SUBSALICYLATE 524 MG/30 ML BLIST.PACK PO SCH (09:00)
[2024-04-30] MEDS ORDERED: PANTOPRAZOLE SODIUM 40 MG/VIAL VIAL IV STA (12:15)
[2024-04-30] MEDS ORDERED: LOPERAMIDE HCL 2 MG CAPSULE PO NR (12:15)
[2024-05-01] MEDS ORDERED: PANTOPRAZOLE SODIUM 40 MG/VIAL VIAL IV SCH (09:00)
[2024-05-02 06:46] LABS: HEMATOCRIT 37.6 % (36.0-45.00); HEMOGLOBIN 12.6 g/dL (12.0-15.00); MEAN CELL VOLUME 90.4 fL (80.00-100.00); MEAN CORPUSCULAR HEMOGLOBIN 30.3 pg (27.00-32.0); MEAN CORPUSCULAR HGB CONC 33.6 g/dl (32.0-36.0); PLATELET COUNT 148 K/uL (150-450); RED BLOOD COUNT 4.16 M/uL (4.00-6.00); RED CELL DISTRIBUTION WIDTH 15.3 % (11.5-14.5)
[2024-05-02 07:21] LABS: ALBUMIN 2.9 gm/dL (3.4-5.0); CALCIUM 8.9 mg/dL (8.5-10.1); GFR 260.3; MAGNESIUM 1.8 mg/dL (1.8-2.4); PHOSPHOROUS 4.1 mg/dL (2.5-4.9); POTASSIUM 4.47 mEq/L (3.5-5.1)
[2024-05-02 07:55] LABS: CREATININE SERUM 0.29 mg/dL (0.55-1.02)
[2024-05-02] MEDS ORDERED: MAGNESIUM SULFATE IN WATER 2 GM/50 ML PIGGYBAG IV NR (08:00)
[2024-05-05 08:51] LABS: HEMATOCRIT 39.9 % (36.0-45.00); HEMOGLOBIN 13.4 g/dL (12.0-15.00); MEAN CELL VOLUME 90.6 fL (80.00-100.00); MEAN CORPUSCULAR HEMOGLOBIN 30.4 pg (27.00-32.0); MEAN CORPUSCULAR HGB CONC 33.5 g/dl (32.0-36.0); PLATELET COUNT 183 K/uL (150-450); RED CELL DISTRIBUTION WIDTH 15.4 % (11.5-14.5)
[2024-05-05 09:14] LABS: CALCIUM 9.8 mg/dL (8.5-10.1); CREATININE SERUM 0.34 mg/dL (0.55-1.02); GFR 216.65; POTASSIUM 4.65 mEq/L (3.5-5.1)
[2024-05-05 09:18] LABS: C-REACTIVE PROTEIN 0.4 MG/DL (0.00-0.29)
[2024-05-09 07:03] LABS: HEMATOCRIT 38.6 % (36.0-45.00); MEAN CELL VOLUME 88.7 fL (80.00-100.00); MEAN CORPUSCULAR HEMOGLOBIN 29.8 pg (27.00-32.0); MEAN CORPUSCULAR HGB CONC 33.6 g/dl (32.0-36.0); PLATELET COUNT 175 K/uL (150-450); RED BLOOD COUNT 4.35 M/uL (4.00-6.00); RED CELL DISTRIBUTION WIDTH 15.4 % (11.5-14.5)
[2024-05-09 07:25] LABS: ALBUMIN 3.2 gm/dL (3.4-5.0); CALCIUM 9.3 mg/dL (8.5-10.1); CREATININE SERUM 0.42 mg/dL (0.55-1.02); GFR 169.77; PHOSPHOROUS 4.9 mg/dL (2.5-4.9); POTASSIUM 4.72 mEq/L (3.5-5.1)
[2024-05-11 14:12] LABS: INR 0.95; PARTIAL THROMBOPLASTIN TIME 27.7 SECONDS (22.0-34.0)
[2024-05-12 09:38] LABS: HEMATOCRIT 41.5 % (36.0-45.00); MEAN CELL VOLUME 88.6 fL (80.00-100.00); MEAN CORPUSCULAR HGB CONC 33.8 g/dl (32.0-36.0); PLATELET COUNT 187 K/uL (150-450); RED BLOOD COUNT 4.68 M/uL (4.00-6.00); RED CELL DISTRIBUTION WIDTH 15.3 % (11.5-14.5)
[2024-05-12 10:05] LABS: ALBUMIN 3.4 gm/dL (3.4-5.0); BILIRUBIN TOTAL 0.98 mg/dL (0.3-1.2); CALCIUM 9.2 mg/dL (8.5-10.1); CREATININE SERUM 0.41 mg/dL (0.55-1.02); GFR 174.56; GLOBULINA 4.5 G/DL (2.4-3.5); POTASSIUM 4.6 mEq/L (3.5-5.1); TOTAL PROTEIN 7.9 gm/dL (6.4-8.2)
[2024-05-12 10:18] LABS: ERYTHROCYTE SEDIMENTATION RATE 30 mm/hr
[2024-05-12 10:28] LABS: C-REACTIVE PROTEIN 1.56 MG/DL (0.00-0.29)
[2024-05-13] MEDS ORDERED: KETOROLAC TROMETHAMINE 30 MG VIAL IV STA (08:23)
[2024-05-13] MEDS ORDERED: KETOROLAC TROMETHAMINE 30 MG VIAL IV PRN (08:30)
[2024-05-14] MEDS ORDERED: FAMOtidine 20 MG TABLET PO SCH (17:00)
== END 2024-05-16 16:16 | disposition home or self-care (01) | DRG 857 ==
LOC: ER 07:07 → SURH 09:55 → SURG 09:55 → SEC-K 09:55 → SURH 10:03 → SURG 10:24 → SURH 03-27 17:39
PROVIDERS: Colon & Rectal Surgery; General Practice; Internal Medicine; Internal Medicine Geriatric Medicine; Internal Medicine Infectious Disease; Specialist; ADMIT Surgery; ATTEND Surgery
PROC: 02HV33Z Insertion of Infusion Device into Superior Vena Cava, Percutaneous Approach (ICD-10-PCS; 2024-03-25)
PROC: B54MZZZ Ultrasonography of Right Upper Extremity Veins (ICD-10-PCS; 2024-04-07)
PROC: 0JD80ZZ Extraction of Abdomen Subcutaneous Tissue and Fascia, Open Approach (ICD-10-PCS; 2024-04-10)
PROC: 0WPF0JZ Removal of Synthetic Substitute from Abdominal Wall, Open Approach (ICD-10-PCS; principal; 2024-04-10 11:00)
PROC: BP39ZZZ Magnetic Resonance Imaging (MRI) of Left Shoulder (ICD-10-PCS; 2024-04-16)
PROC: 0JD80ZZ Extraction of Abdomen Subcutaneous Tissue and Fascia, Open Approach (ICD-10-PCS; 2024-04-21)
PROC: 0WCG0ZZ Extirpation of Matter from Peritoneal Cavity, Open Approach (ICD-10-PCS; 2024-05-12)
PROC: XHRPXF7 Replacement of Skin with Bioengineered Allogeneic Construct, External Approach, New Technology Group 7 (ICD-10-PCS; 2024-05-12)
DX: T81.49XA Infection following a procedure, other surgical site, initial encounter (principal); I82.621 Acute embolism and thrombosis of deep veins of right upper extremity; L03.311 Cellulitis of abdominal wall; K92.2 Gastrointestinal hemorrhage, unspecified; E11.9 Type 2 diabetes mellitus without complications; Z79.4 Long term (current) use of insulin; E66.9 Obesity, unspecified; Z68.35 Body mass index [BMI] 35.0-35.9, adult; M25.512 Pain in left shoulder; R29.2 Abnormal reflex; L08.9 Local infection of the skin and subcutaneous tissue, unspecified
CPT/HCPCS: 73225